=== PATIENT | female | born 1960 ===

== ENCOUNTER → 2020-04-24 | Outpatient (CLI) | payer BC ==
[2020-04-24 14:45] VITALS: BP 131/80; PULSE 67; RESP 20; TEMP 98.1; BMI 37.3
--- NOTE | 2020-04-24 15:34 | P.BASOAP ---
Subjective Progress Note Date: 04/24/20 Principal diagnosis: Morbid obesity 59-year-old female known to our service from previous lap band placement. Patient is complaining of intractable vomiting at this time. Describes worsening reflux as well. Despite that the patient has not been able to lose weight sufficiently. Patient is now interested in emptying the band and converting to alternative bariatric procedure. Would like to have the sleeve gastrectomy. Says she had an EGD 2-3 years ago. Those results are not available to me. Denies pain. Objective - Vital Signs Vital signs: Vital Signs Temp 98.1 F 04/24/20 14:40 Pulse 67 04/24/20 14:40 Resp 20 04/24/20 14:40 BP 131/80 04/24/20 14:40 Pulse Ox Intake & Output 04/23/20 04/24/20 04/24/20 18:59 06:59 18:59 Weight 86.636 kg - Exam Abdomen: Soft, nontender, nondistended Assessment/Plan (1) Intractable vomiting Narrative/Plan: 59-year-old female with intractable vomiting. We'll into the band at this time. Patient is interested in band conversion to sleeve gastrectomy. That is not unreasonable. We'll obtain medical clearance and discussed with Alexys maynard regarding any additional preoperative requirements. Patient may require repeat EGD. The patient's lap band port was palpated. The site was aseptically prepped. The Alas needle was advanced into the port. A total of 10 ml of fluid was evacuated. Pressure was held and a sterile dressing was applied. Plan: Date: 04/24/20 Initial Weight: 86.636 kg Initial BMI: 37.3 Current Weight: 86.636 kg Current BMI: 37.3 Type of Surgery: Total Volume in Band: Previous Volume: Volume Removed: Volume Added: Band Size:
== END | disposition home or self-care (01) ==
LOC: BARWHC3 14:30
PROVIDERS: ATTEND Surgery
DX: Z46.51 Encounter for fitting and adjustment of gastric lap band (principal); R11.10 Vomiting, unspecified
CPT/HCPCS: 99212

== ENCOUNTER → 2020-05-07 | Outpatient (CLI) | payer BC ==
[2020-05-07 13:28] VITALS: BMI 38.7
== END | disposition home or self-care (01) ==
LOC: BARWHC3 08:44
PROVIDERS: ATTEND Surgery
DX: E66.01 Morbid (severe) obesity due to excess calories (principal); Z71.3 Dietary counseling and surveillance; Z68.38 Body mass index [BMI] 38.0-38.9, adult
CPT/HCPCS: 97804

== ENCOUNTER 2020-06-05 09:48 | Day surgery (SDC) | payer BC ==
[2020-06-01 15:30] VITALS: BMI 39.4
[~2020-06-05 09:48] MED LIST: LACTATED RINGERS 1,000 ML IV SCH
[2020-06-05 10:21] VITALS: TEMP 97
[2020-06-05] MEDS ORDERED: PROPOFOL 10 MG/ML 20 ML VIAL IV ONE (10:51)
[2020-06-05] MEDS ORDERED: LIDOCAINE 1% INJ 10MG/ML (20 ML MDV) ONE (10:51)
--- NOTE | 2020-06-05 10:54 | P.GSHP ---
History of Present Illness H&P Date: 06/05/20 Chief Complaint: GERD Patient here today for upper endoscopy. Has been having intermittent vomiting and reflux. Her lab band was emptied and since then her reflux and vomiting have improved. Patient interested in conversion to alternate bariatric procedure. Currently she is interested in gastric bypass. Past Medical History Past Medical History: Osteoarthritis (OA) Additional Past Medical History / Comment(s): PASSED OUT IN OCT 2019 HAS LOOP RECORDER NOW History of Any Multi-Drug Resistant Organisms: None Reported Past Surgical History: Bariatric Surgery, Breast Surgery, Tonsillectomy Additional Past Surgical History / Comment(s): LAP BAND-2008, LT BREAST LUMPECTOMY, ECTOPIC -1981, LOOP RECORDER Past Anesthesia/Blood Transfusion Reactions: Motion Sickness Past Psychological History: No Psychological Hx Reported Past Alcohol Use History: Occasional Past Drug Use History: None Reported - Past Family History Mother Family Medical History: No Reported History Father Family Medical History: Cancer Additional Family Medical History / Comment(s): SKIN CANCER Medications and Allergies Home Medications Medication Instructions Recorded Confirmed Type Celecoxib [CeleBREX] 200 mg PO DAILY 04/24/20 06/05/20 History Ergocalciferol [Vitamin D2] 50,000 unit PO Q7D 04/24/20 06/05/20 History Omeprazole 20 mg PO DAILY 04/24/20 06/05/20 History Oxybutynin Chloride [Oxybutynin 15 mg PO DAILY 04/24/20 06/05/20 History Chloride ER] valACYclovir [Valtrex] 500 mg PO DAILY 04/24/20 06/05/20 History Allergies Allergy/AdvReac Type Severity Reaction Status Date / Time acetaminophen [From Percocet] Allergy Nausea & Verified 06/05/20 10:10 Vomiting ampicillin Allergy Rash/Hives Verified 06/05/20 10:10 latex Allergy red, Verified 06/05/20 10:10 itchy, blotchy skin oxycodone [From Percocet] Allergy Nausea & Verified 06/05/20 10:10 Vomiting Penicillins Allergy Rash/Hives Verified 06/05/20 10:10 Surgical - Exam Vital Signs Temp Pulse Resp BP Pulse Ox 97 F L 86 16 147/73 93 L 06/05/20 10:15 06/05/20 10:15 06/05/20 10:15 06/05/20 10:15 06/05/20 10:15 Physical exam: General: Well-developed, well-nourished HEENT: Normocephalic, sclerae nonicteric Abdomen: Nontender, nondistended Extremities: No edema Neuro: Alert and oriented Assessment and Plan (1) GERD (gastroesophageal reflux disease) Narrative/Plan: Will proceed with upper endoscopy. Current Visit: Yes Status: Acute Code(s): K21.9 - GASTRO-ESOPHAGEAL REFLUX DISEASE WITHOUT ESOPHAGITIS SNOMED Code(s): 667647603
--- NOTE | 2020-06-05 11:02 | P.PCN ---
Date of Procedure: 06/05/20 Procedure(s) Performed: Preoperative Dx: GERD Postoperative Dx: Gastritis, gastric polyps Procedure: EGD with Bx Anesthesia: Sedation Endoscopist: Dr. Alvarez Specimens: Antrum, gastric polyp Endoscopic Procedure: The patient was on the endoscopy table in the left decubitus position. The Olympus gastroscope was inserted into the oropharynx and passed under direct visualization to the region of the third portion of the duodenum. From that point the scope was slowly withdrawn inspecting all surfaces carefully. There were no neoplastic inflammatory or polypoid lesions throughout the duodenum. The pylorus was widely patent. The stomach was carefully inspected. There was mild gastritis present. A biopsy of the antrum took place to rule out H. pylori. Patient also had multiple gastric polyps. The largest one measured about 6 mm in size and this was removed. Retroflexion revealed a normal band plication. No definite hiatal hernia was seen. The esophagus was then carefully examined. There were no neoplastic inflammatory or polypoid lesions throughout the visualized esophagus. The patient was then taken to the recovery room in stable condition per anesthesia guidelines. Recommendations: Await biopsy results. Follow-up bariatric clinic
[2020-06-05 11:17] VITALS: BP 137/78; PULSE 78; RESP 18
== END 2020-06-05 11:45 | disposition home or self-care (01) ==
LOC: ORWHC2ENDO 09:48
PROVIDERS: ATTEND Surgery
DX: K29.50 Unspecified chronic gastritis without bleeding (principal); K31.7 Polyp of stomach and duodenum; K21.9 Gastro-esophageal reflux disease without esophagitis; M19.90 Unspecified osteoarthritis, unspecified site; Z98.84 Bariatric surgery status; Z95.818 Presence of other cardiac implants and grafts; Z79.899 Other long term (current) drug therapy; Z88.5 Allergy status to narcotic agent; Z88.0 Allergy status to penicillin; Z91.040 Latex allergy status; Z98.890 Other specified postprocedural states; Z90.89 Acquired absence of other organs; Z80.8 Family history of malignant neoplasm of other organs or systems
CPT/HCPCS: 88305; 43239; J2001; J2704

== ENCOUNTER → 2020-06-20 | Outpatient (CLI) | payer BC ==
--- NOTE | 2020-06-20 15:14 | P.HPBAR ---
Bariatric H&P - History & Physicial H&P Date: 06/20/20 History & Physicial: Visit/CC: Patient initial contact: Initial weight: 86.636 kg Initial weight in pounds: Height: Initial BMI: Last weight: Current weight: Current weight in pounds: Current BMI: [place] body weight (based on NIH guidelines): Excess body weight loss: The patient is a 59 year-old F who presents for Bariatric Assessment. Has lap band in 2008. In 2017 to 2018 for her band and was trying to lose 40 pounds from dehydration. She had upper endoscopy and was looking into the sleeve. she reports GERD. SHe has a loop monitor and heart test. She reports developing high blood pressure. She was approved for a sleeve. She has a band. She got clearance from medical doctor. Machin[employer] clearance for history of loop recorder. May need requirements for procedure. She had a colonoscopy in Dec 20 - had 2 to 3 polyps. Will needs labs and full work=up Labs. Band removal history of ruptured Past Medical History Past Medical History: No Reported History History of Any Multi-Drug Resistant Organisms: None Reported Past Surgical History: Bariatric Surgery, Breast Surgery, Tonsillectomy Additional Past Surgical History / Comment(s): LAP BAND-2008, LT BREAST LUMPECTOMY, ECTOPIC -1981 Past Anesthesia/Blood Transfusion Reactions: Motion Sickness Past Alcohol Use History: Occasional Past Drug Use History: None Reported Bariatric Checklist Checklist: Plan: Checklist: EGD: 1. Hiatal hernia: 2. H. Pylori: HgbA1c: Vitamin D: Smoking: Never smoker Primary care physician referral: Dr Coe in [place] Psychiatry clearance: Cardiology clearance: Sleep study: Diet journal: VTE risk score: VTE risk level: Rehab needs at discharge:
[2020-06-20 16:11] VITALS: BP 145/78; PULSE 92; TEMP 98.5; BMI 40.0
== END | disposition home or self-care (01) ==
LOC: BARWHC3 14:54
PROVIDERS: ATTEND Surgery Plastic and Reconstructive Surgery
DX: Z46.51 Encounter for fitting and adjustment of gastric lap band (principal); K21.9 Gastro-esophageal reflux disease without esophagitis; E86.0 Dehydration; Z98.84 Bariatric surgery status
CPT/HCPCS: 99211

== ENCOUNTER → 2020-06-21 | Outpatient (CLI) | payer BC ==
[2020-06-21 13:22] LABS: HCT 38.9 % (34.0-46.0); HGB 11.9 gm/dL (11.4-16.0); Hypochromasia Slight; MCHC 30.5 g/dL (31.0-37.0); MCV 88.5 fL (80.0-100.0); Mean Platelet Volume 6.7; Platelet Count 347 k/uL (150-450); RBC 4.39 m/uL (3.80-5.40); RDW 14.5 % (11.5-15.5); WBC 5.1 k/uL (3.8-10.6)
[2020-06-21 18:55] LABS: % Iron Saturation 16.37 (12.00-45.00); African American GFR (CKD) 115.6 (60.0-200.0); Albumin 4.4 g/dL (3.80-4.90); Albumin/Globulin Ratio 1.83 (1.60-3.17); Anion Gap 7.4 mmol/L (4.00-12.00); Calcium 9.5 mg/dL (8.7-10.3); Carbon Dioxide 26.6 mmol/L (21.6-31.8); Chol/HDL Ratio 2.64; Globulin 2.4 g/dL (1.6-3.3); LDL Cholesterol,Calculated 98.6 mg/dL (0.0-131.0); Magnesium 1.9 mg/dL (1.5-2.4); Non-African American GFR(CKD) 99.8 (60.0-200.0); Phosphorus 4.4 mg/dL (2.4-5.1); Potassium 4.1 mmol/L (3.5-5.5); Total Bilirubin 0.9 mg/dL (0.3-1.2); Total Protein 6.8 g/dL (6.2-8.2); VLDL Calculation 19.4 mg/dL (5.00-40.00)
[2020-06-21 19:08] LABS: Ferritin 6.4 ng/mL (10.0-291.0); Folate, Serum 19.1 ng/mL
[2020-06-21 21:24] LABS: Hemoglobin A1C 6.1 % (4.0-6.0)
[2020-06-21 23:59] LABS: INR <0.90 (0.90-1.11); Partial Thromboplastin Time 28.9 sec (24.7-29.9); Prothrombin Time <9.9 sec (9.9-11.9)
[2020-06-22 14:57] LABS: Zinc, Serum 65 ug/dL (60-130)
== END | disposition home or self-care (01) ==
LOC: LABWHC1 12:00
PROVIDERS: ATTEND Surgery Plastic and Reconstructive Surgery
DX: E21.1 Secondary hyperparathyroidism, not elsewhere classified (principal); E89.1 Postprocedural hypoinsulinemia; D50.9 Iron deficiency anemia, unspecified; K90.9 Intestinal malabsorption, unspecified; E55.9 Vitamin D deficiency, unspecified; K74.1 Hepatic sclerosis; N19 Unspecified kidney failure; K50.90 Crohn's disease, unspecified, without complications
CPT/HCPCS: 36415; 80053; 80061; 82306; 82525; 82607; 82728; 82746; 83036; 83540; 83550; 83735; 83970; 84100; 84134; 84255; 84425; 84443; 84590; 84630; 85027; 85610; 85730; 93005

== ENCOUNTER → 2020-11-07 | Outpatient (CLI) | payer BC ==
--- NOTE | 2020-11-07 15:29 | P.PN ---
Subjective Progress Note Date: 11/07/20 DATE OF SERVICE: 11/07/2020 CHIEF COMPLAINT: Morbid obesity HISTORY OF PRESENT ILLNESS: Arpita Valente is a 60-year-old female who comes with lifelong morbid obesity. She has a gastric lap band since 2008. She is 11 years out from her procedure. She comes in with gastroespohageal reflux disease, intolerance to band adjustments as a result of her adjustable gastric band. She comes in with moderate weight gain despite her adjustable gastric band. She is looking into the band removal. She is also looking into the gastric bypass. She no longer wants the sleeve. Overall, she has gained 30 pounds in 6 months. She presents for management of her weight loss. At height of 5 feet 0 inches, her ideal body weight is 127 pounds. She comes in 219 pounds from 205 pounds, 5 months ago. She has gained 14 pounds in 5 months. Her body mass index is 40.0 up to 42.8. She is 92 pounds overweight. PAST MEDICAL HISTORY: 1. Morbid obesity due to excess calories 2. Body mass index of 40.0 3. Gastroesophageal reflux disease 4. Osteoarthritis of the knees 5. Heart arrhythmia 6. History of colon polyps 7. Hypertensive heart disease PAST SURGICAL HISTORY: 1. Ectopic 2. Adjustable gastric band placement 3. Upper endoscopy 4. Colonoscopy with polypectomy 5. Placement of loop recorder HOME MEDICATIONS: Home Medications Medication Instructions Recorded Confirmed Celecoxib [CeleBREX] 200 mg PO DAILY 04/24/20 06/21/20 Ergocalciferol [Vitamin D2] 50,000 unit PO Q7D 04/24/20 06/21/20 Omeprazole 20 mg PO DAILY 04/24/20 06/21/20 Oxybutynin Chloride [Oxybutynin 15 mg PO DAILY 04/24/20 06/21/20 Chloride ER] valACYclovir [Valtrex] 500 mg PO DAILY 04/24/20 06/21/20 ALLERGIES: Allergies Allergy/AdvReac Type Severity Reaction Status Date / Time acetaminophen [From Percocet] Allergy Nausea & Verified 06/05/20 10:10 Vomiting ampicillin Allergy Rash/Hives Verified 06/05/20 10:10 latex Allergy red, Verified 06/05/20 10:10 itchy, blotchy skin oxycodone [From Percocet] Allergy Nausea & Verified 06/05/20 10:10 Vomiting Penicillins Allergy Rash/Hives Verified 06/05/20 10:10 SOCIAL HISTORY: No past tobacco use. FAMILY HISTORY: No family history of ulcerative colitis disease or Crohn's disease. Family history of morbid obesity. No lupus in the family. No reports of stomach or esophageal cancer. REVIEW OF ORGAN SYSTEMS: CONSTITUTIONAL: HEENT: Denies any active troubles with hearing. Wears glasses. ENDOCRINE: No diabetes. No hypothyroidism. CARDIOVASCULAR: Past reports of palpitations or heart attacks or chest pain. RESPIRATORY: No daytime somnolence. No asthma. GASTROINTESTINAL: Denies any bright red blood per rectum. No diarrhea. No constipation. MUSCULOSKELETAL: Has lower back pain and joint pain. Has osteoarthritis of the knees. NEURO: No headaches. No seizure disorders. PSYCH: No depression. No suicidal ideation. RHEUMATOLOGIC: No lupus. No rheumatoid arthritis. HEMATOLOGIC: Denies any abnormal bleeding or bruising. No personal history of DVTs. SKIN: No rash. No skin cancer. PHYSICAL EXAM: VITAL SIGNS: Height 5 foot 0 inches, weight 219 pounds. BMI 42.8 Vital Signs Temp 98 F 11/07/20 16:17 Pulse 56 L 11/07/20 16:17 Resp BP 151/77 11/07/20 16:17 Pulse Ox GENERAL: Well-developed in no acute distress. HEENT: No scleral icterus. Extraocular movements grossly intact. Hears conversational speech. No nasal drainage. NECK: Supple without lymphadenopathy. CHEST: Nonlabored respirations with equal bilateral excursions. CARDIOVASCULAR: Regular rate and regular rhythm. Distal 2+ pulses. ABDOMEN: Obese, soft, nontender, nondistended. MUSCULOSKELETAL: No clubbing, cyanosis. NEURO: No focal or lateralizing signs. Cranial nerves 2 through 12 grossly within normal limits. PSYCH: Appropriate affect. Alert and oriented to person, place and time. SKIN: Good skin turgor. Well perfused. ASSESSMENT: 1. Morbid obesity due to excess calories 2. Body mass index of 42.8 3. Gastroesophageal reflux disease 4. Osteoarthritis of the knees 5. Heart arrhythmia 6. History of colon polyps 7. Hypertensive heart disease 8. Complications from adjustable gastric band PLAN: 1. Recommend adjustable band removal and all components due to complications. 2. Recommend display mechanic class. 3. She is elevated risk for complications due to pre-existing heart disease.
[2020-11-07 16:20] VITALS: BP 151/77; PULSE 56; TEMP 98; BMI 42.7
== END | disposition home or self-care (01) ==
LOC: BARWHC3 14:54
PROVIDERS: ATTEND Surgery Plastic and Reconstructive Surgery
DX: Z46.51 Encounter for fitting and adjustment of gastric lap band (principal); K21.9 Gastro-esophageal reflux disease without esophagitis; M17.0 Bilateral primary osteoarthritis of knee; I49.9 Cardiac arrhythmia, unspecified; I11.9 Hypertensive heart disease without heart failure; Z87.19 Personal history of other diseases of the digestive system; E66.01 Morbid (severe) obesity due to excess calories; Z68.41 Body mass index [BMI] 40.0-44.9, adult; Z88.5 Allergy status to narcotic agent; Z91.040 Latex allergy status; Z88.0 Allergy status to penicillin; Z79.1 Long term (current) use of non-steroidal anti-inflammatories (NSAID); Z79.899 Other long term (current) drug therapy; Z98.84 Bariatric surgery status
CPT/HCPCS: 99211

== ENCOUNTER → 2020-11-07 | Outpatient (CLI) | payer BC ==
[2020-11-07 16:24] LABS: Basophils % (A) 1 %; Eosinophils # (A) 0.2 k/uL (0-0.7); Eosinophils % (A) 2 %; HCT 41.7 % (34.0-46.0); HGB 13.3 gm/dL (11.4-16.0); Lymphocytes # (A) 1.7 k/uL (1.0-4.8); Lymphocytes % (A) 27 %; MCH 28.8 pg (25.0-35.0); MCV 90.1 fL (80.0-100.0); Mean Platelet Volume 6.7; Monocytes # (A) 0.4 k/uL (0-1.0); Monocytes % (A) 6 %; Neutrophils # (A) 3.9 k/uL (1.3-7.7); Neutrophils % (A) 61 %; Platelet Count 332 k/uL (150-450); RBC 4.63 m/uL (3.80-5.40); RDW 14.5 % (11.5-15.5); WBC 6.3 k/uL (3.8-10.6)
[2020-11-07 16:32] LABS: ALT 18 U/L (4-34); AST 25 U/L (14-36); African American GFR (CKD) >90 (>60 ml/min/1.73 sqM); Albumin 4.3 g/dL (3.5-5.0); Alkaline Phosphatase 92 U/L (38-126); Anion Gap 7 mmol/L; Blood Urea Nitrogen 14 mg/dL (7-17); Calcium 9.5 mg/dL (8.4-10.2); Carbon Dioxide 27 mmol/L (22-30); Chloride 104 mmol/L (98-107); Glucose 100 mg/dL (74-99); Non-African American GFR(CKD) >90 (>60 ml/min/1.73 sqM); Potassium 4.4 mmol/L (3.5-5.1); Sodium 138 mmol/L (137-145); Total Bilirubin 0.6 mg/dL (0.2-1.3); Total Protein 7.5 g/dL (6.3-8.2)
== END | disposition home or self-care (01) ==
LOC: LABPAT 15:40
PROVIDERS: ATTEND Surgery Plastic and Reconstructive Surgery
DX: Z01.818 Encounter for other preprocedural examination (principal)
CPT/HCPCS: 80053; 85025

== ENCOUNTER 2020-11-19 06:19 | Day surgery (SDC) | payer BC ==
[2020-11-13 17:44] VITALS: BMI 42.2
--- NOTE | 2020-11-18 20:35 | P.GSHP ---
History of Present Illness H&P Date: 11/19/20 DATE OF SERVICE: 11/19/2020 CHIEF COMPLAINT: Complications adjustable gastric band HISTORY OF PRESENT ILLNESS: Arpita Valente is a 60-year-old female who comes with lifelong morbid obesity. She has a gastric lap band since 2009, over 10+ years old. In 2017 to 2018, she was losing weight and was trying to lose 40 pounds from dehydration. She had upper endoscopy and is looking into the sleeve gastrecomty. She reports gastroesophageal reflux disease. She has a loop monitor for her heart. She reports developing high blood pressure as a result of her morbid obesity. She reports being approved for a sleeve gastrectomy. She has a band. She received medical clearance from her medical doctor. She received cardiology clearance for history of loop recorder. She had a colonoscopy in Dec 20, 2019 and had 2 to 3 polyps removed. She presents secondary to her morbid obesity including complications adjustable gastric band. At height of 5 feet 0 inches, her ideal body weight is 127 pounds. She comes in 205 pounds. Her body mass index is 40.0. She is 78 pounds overweight. PAST MEDICAL HISTORY: 1. Morbid obesity due to excess calories 2. Body mass index of 40.0 3. Gastroesophageal reflux disease 4. Osteoarthritis of the knees 5. Heart arrhythmia 6. History of colon polyps 7. Hypertensive heart disease PAST SURGICAL HISTORY: 1. Ectopic 2. Adjustable gastric band placement 3. Upper endoscopy 4. Colonoscopy with polypectomy 5. Placement of loop recorder HOME MEDICATIONS: Home Medications Medication Instructions Recorded Confirmed Celecoxib [CeleBREX] 200 mg PO DAILY 04/24/20 06/21/20 Ergocalciferol [Vitamin D2] 50,000 unit PO Q7D 04/24/20 06/21/20 Omeprazole 20 mg PO DAILY 04/24/20 06/21/20 Oxybutynin Chloride [Oxybutynin 15 mg PO DAILY 04/24/20 06/21/20 Chloride ER] valACYclovir [Valtrex] 500 mg PO DAILY 04/24/20 06/21/20 ALLERGIES: Allergies Allergy/AdvReac Type Severity Reaction Status Date / Time acetaminophen [From Percocet] Allergy Nausea & Verified 06/05/20 10:10 Vomiting ampicillin Allergy Rash/Hives Verified 06/05/20 10:10 latex Allergy red, Verified 06/05/20 10:10 itchy, blotchy skin oxycodone [From Percocet] Allergy Nausea & Verified 06/05/20 10:10 Vomiting Penicillins Allergy Rash/Hives Verified 06/05/20 10:10 SOCIAL HISTORY: No past tobacco use. FAMILY HISTORY: No family history of ulcerative colitis disease or Crohn's disease. Family history of morbid obesity. No lupus in the family. No reports of stomach or esophageal cancer. REVIEW OF ORGAN SYSTEMS: CONSTITUTIONAL: At height of 5 feet 0 inches, her ideal body weight is 127 pounds. She comes in 205 pounds. Her body mass index is 40.0. She is 78 pounds overweight. HEENT: Denies any active troubles with hearing. Wears glasses. ENDOCRINE: No diabetes. No hypothyroidism. CARDIOVASCULAR: Past reports of palpitations or heart attacks or chest pain. RESPIRATORY: No daytime somnolence. No asthma. GASTROINTESTINAL: Denies any bright red blood per rectum. No diarrhea. No const ipation. MUSCULOSKELETAL: Has lower back pain and joint pain. Has osteoarthritis of the knees. NEURO: No headaches. No seizure disorders. PSYCH: No depression. No suicidal ideation. RHEUMATOLOGIC: No lupus. No rheumatoid arthritis. HEMATOLOGIC: Denies any abnormal bleeding or bruising. No personal history of DVTs. SKIN: No rash. No skin cancer. PHYSICAL EXAM: VITAL SIGNS: Height 5 foot 0 inches, weight 205 pounds. BMI 40.0 GENERAL: Well-developed in no acute distress. HEENT: No scleral icterus. Extraocular movements grossly intact. Hears conversational speech. No nasal drainage. NECK: Supple without lymphadenopathy. CHEST: Nonlabored respirations with equal bilateral excursions. CARDIOVASCULAR: Regular rate and regular rhythm. Distal 2+ pulses. ABDOMEN: Obese, soft, nontender, nondistended. MUSCULOSKELETAL: No clubbing, cyanosis. NEURO: No focal or lateralizing signs. Cranial nerves 2 through 12 grossly within normal limits. PSYCH: Appropriate affect. Alert and oriented to person, place and time. SKIN: Good skin turgor. Well perfused. ASSESSMENT: 1. Morbid obesity due to excess calories 2. Body mass index of 40.0 3. Gastroesophageal reflux disease 4. Osteoarthritis of the knees 5. Heart arrhythmia 6. History of colon polyps 7. Hypertensive heart disease 8. Complications from adjustable gastric band PLAN: 1. Surgical options including gastric bypass, sleeve gastrectomy were described in detail. Alternatives such as gastric balloon including duodenal switch were described. She is looking into the gastric bypass. 2. The [place] bariatric surgical collaborative data and outcomes calculator were described with surgical options. 3. Dietary surveillance and counseling was reviewed. Increased protein intake over 65 grams daily advised. 4. Recommend band removal for history of adjustable gastric band with complications. Past Medical History Past Medical History: GERD/Reflux, Osteoarthritis (OA), Syncope Additional Past Medical History / Comment(s): anemia, syncope related to vasovagal response per pt.-has loop recorder implant History of Any Multi-Drug Resistant Organisms: None Reported Past Surgical History: Bariatric Surgery, Breast Surgery, Tonsillectomy Additional Past Surgical History / Comment(s): LAP BAND-2008, LT BREAST LUMPECTOMY, ECTOPIC -1981, loop recorder implant, tilt table test, colonoscopies, EGD's Past Anesthesia/Blood Transfusion Reactions: Previous Problems w/ Anesthesia, Motion Sickness Additional Past Anesthesia/Blood Transfusion Reaction / Comment(s): had problems being put to sleep for lap band, not sure what, she stated they stopped surg. first time & then tried again 2nd time, denies anyone said difficulty w/intubation or her airway Smoking Status: Never smoker Medications and Allergies Home Medications Medication Instructions Recorded Confirmed Type Ergocalciferol [Vitamin D2] 50,000 unit PO Q7D 04/24/20 11/13/20 History Omeprazole 20 mg PO DAILY 04/24/20 11/13/20 History Oxybutynin Chloride [Oxybutynin 15 mg PO DAILY 04/24/20 11/13/20 History Chloride ER] valACYclovir [Valtrex] 500 mg PO DAILY 04/24/20 11/13/20 History Celecoxib [CeleBREX] 200 mg PO DAILY 11/13/20 11/13/20 History Ferrous Sulfate [Feosol] 325 mg PO DAILY 11/13/20 11/13/20 History Allergies Allergy/AdvReac Type Severity Reaction Status Date / Time acetaminophen [From Percocet] Allergy Nausea & Verified 11/13/20 17:04 Vomiting ampicillin Allergy Rash/Hives Verified 11/13/20 17:04 latex Allergy red, Verified 11/13/20 17:04 itchy, blotchy skin oxycodone [From Percocet] Allergy Nausea & Verified 11/13/20 17:04 Vomiting Penicillins Allergy Rash/Hives Verified 11/13/20 17:04
[~2020-11-19 06:19] MED LIST changes: +ACETAMINOPHEN TAB 500 MG TAB PO STA; +CHLORHEXIDINE GLUCONATE 15 ML CUP MUCOUS MEM PRN; +DEXAMETHASONE SOD PHOSPHATE 4 MG/ML 1 ML VIAL IV ONE; +ENOXAPARIN 40 MG/0.4 ML SYRINGE SQ PRN; +GABAPENTIN 300 MG CAP PO STA; +MIDAZOLAM 2 MG/2 ML VIAL IV PRN; +ONDANSETRON 4 MG/2 ML VIAL IVP ONE; +PANTOPRAZOLE 40 MG/10 ML VIAL IV PRN; +SCOPOLAMINE 1.5MG/72HR PATCH TRANSDERM ONE; +SCOPOLAMINE 1.5MG/72HR PATCH TRANSDERM STA
[2020-11-19] MEDS ORDERED: LIDOCAINE 1% (10MG/ML) FOR IV START INTRADERMA ONE (06:58)
[2020-11-19] MEDS ORDERED: fentaNYL (PF) 50 MCG/ML 2 ML AMP IV PRN (07:00)
[2020-11-19] MEDS ORDERED: MELOXICAM 7.5 MG TAB PO SCH (07:00)
[2020-11-19] MEDS ORDERED: MIDAZOLAM 2 MG/2 ML VIAL ONE (07:19)
[2020-11-19] MEDS ORDERED: ROCURONIUM 10 MG/ML (10 ML VIAL) IV ONE (07:19)
[2020-11-19] MEDS ORDERED: PROPOFOL 10 MG/ML 20 ML VIAL IV ONE (07:19)
[2020-11-19] MEDS ORDERED: SUCCINYLCHOLINE CHLORIDE 100 MG/5 ML SYR IV ONE (07:19)
[2020-11-19] MEDS ORDERED: NEOSTIGMINE 1 MG/ML 10 ML VIAL ONE (07:19)
[2020-11-19] MEDS ORDERED: GLYCOPYRROLATE 0.2 MG/ML 2 ML VIAL ONE (07:19)
[2020-11-19] MEDS ORDERED: LIDOCAINE 1% INJ 10MG/ML (20 ML MDV) ONE (07:19)
[2020-11-19] MEDS ORDERED: fentaNYL (PF) 50 MCG/ML 2 ML AMP ONE (07:19)
[2020-11-19] MEDS ORDERED: PHENYLEPHRINE 10 MG/ML VIAL ONE (07:19)
[2020-11-19] MEDS ORDERED: LIDOCAINE 1%-EPI 1:100,000 20 ML VIAL SQ ONE ×2 (08:00)
[2020-11-19] MEDS ORDERED: LACTATED RINGERS 1,000 ML IV ONE (08:40)
[2020-11-19 09:17] VITALS: TEMP 97.4
[2020-11-19] MEDS: HYDROmorphone 0.5 MG/0.5 ML SYRINGE IVP ONE ×2 (09:35→09:48)
--- NOTE | 2020-11-19 09:51 | P.OP ---
Date of Procedure: 11/19/20 Description of Procedure: SURGEON: KIAN SCHOFIELD MD PREOPERATIVE DIAGNOSES: 1. Morbid obesity due to excess calories 2. Body mass index of 43.3 3. Gastroesophageal reflux disease 4. Osteoarthritis of the knees 5. Heart arrhythmia 6. History of colon polyps 7. Hypertensive heart disease 8. Complications from adjustable gastric band POSTOPERATIVE DIAGNOSES: 1. Morbid obesity due to excess calories 2. Body mass index of 43.3 3. Gastroesophageal reflux disease 4. Osteoarthritis of the knees 5. Heart arrhythmia 6. History of colon polyps 7. Hypertensive heart disease 8. Complications from adjustable gastric band 9. Abdominal peritoneal adhesions greater omentum to abdominal wall 10. Chronic cholecystitis 11. Hepatomegaly with severe fatty liver disease OPERATION: 1. Robotic-assisted da Mehul Xi laparoscopic removal of adjustable gastric band and all components. 2. Robotic-assisted da Mehul Xi laparoscopic lysis of adhesions, 30 minutes ANESTHESIA: General with local anesthetic. ESTIMATED BLOOD LOSS: 5 mL SPECIMENS REMOVED: 1. Adjustable gastric band and components Condition: stable Disposition: same day COMPLICATIONS: None. Operative Findings: 1. Moderate adhesions along the epigastrium due to adjustable gastric band 2. Adjustable gastric band port found along the epigastrium removed in total 3. Severe perihepatic including perigastric adhesions from adjustable gastric band with band embedded into the liver carefully dissected 4. Patient with Mallampati 3 with small mouth adding difficulty for perioral instrumentation 5. Extremely dense subcutaneous tissue recurrent dissection for port removal 6. Gallbladder wall thickening including pericholecystic adhesions suspicious for chronic cholecystitis INDICATIONS: The patient is a 60-year-old male who presents with complications of her adjustable gastric band. Surgical options were described including removal of the band. As she has persistent pain and discomfort from the band, removal of the adjustable gastric band and port including all components was proposed. Benefits and risks of the procedure were described. Informed consent was obtained. DESCRIPTION: The patient was brought into the operating room theater. She was placed supine. She had received Lovenox subcutaneously for DVT prophylaxis. Additionally she Peridex oral solution as an oral decontaminant was placed per anesthesia. After general induction, the abdomen was prepped and draped in standard sterile fashion. Ioban draping was placed along the abdomen. A robotic da Mehul Xi system was prepped and primed. Prior to incision, a timeout protocol was performed and confirmed with the surgical team. Attention was now brought to the intra-abdominal component of the procedure the removal of the adjustable gastric band. Incisions were proposed at 12 cm from the xiphoid. Proposed port sites were marked with indelible marker along the anterior axillary line bilaterally, mid clavicular line bilaterally with each port marked 10 cm from each other. A 5 mm 0 degrees laparoscopic trocar entry was performed along the left upper quadrant. The abdomen was insufflated to 15 mmHg pressure, which she tolerated well. Diagnostic laparoscopy demonstrated no injury to bowel, viscera, or mesentery. An 8 mm camera port was placed left lateral to the umbilicus at the epigastrium, 12 cm distal to the xiphoid. Next, 8-mm port was placed along the right mid abdomen. The 5 mm port was exchanged for 12 mm trocar. A medium sized Abraham liver retractor was used to elevate the left lobe of the liver. The robot was docked along the left lateral abdomen. The patient was repositioned in reverse Trendelenburg position, 21-degrees. A 30-degree camera was used. Using a Prograsp for arm 3, including scissors with cautery for arm 1, the robotic system was docked and primed as described. Instruments were interchanged by the assistant store manager operations. I had sat at the console. Moderate to severe adhesions along the epigastrium including right upper and lower quadrant and greater omentum to abdominal wall was found. Extensive lysis of adhesions over 30 minutes was performed using endo-scissors with cautery to free these adhesions including around the adjustable gastric band. Adjustable gastric band was embedded into the left lobe of the liver which was carefully dissected free. Additionally, the buckle of the adjustable gastric band was densely adherent to the deep tissue requiring cutting the band away from the buckle. The port was followed with its tubing to the gastric band. The gastrohepatic ligament was scarred from prior surgery. The cicatrix around the adjustable gastric band was carefully dissected free. The anti-prolapse stitch was intact. Using scissors with cautery, the cicatrix of the port was incised. The band was then freed. Allergan adjustable gastric band was removed in total. Care was taken to avoid any gastrotomies. The band was unbuckled and cut. The tubing was cut approximately 5 cm distal to the actual adapter. I then went to the head of the bed to perform intraoperative esophagogastroduodenoscopy to evaluate for gastritis and any full thickness injury to the stomach. An Olympus gastroscope was passed from the posterior oropharynx down to the esophagus, where the squamocolumnar junction was found LA grade B erosive esophagitis, chronic changes. The stomach was entered and bile was found and suctioned. Mild chronic gastritis was found along the antrum without gastric ulcers or duodenitis or duodenal ulcers. Retroflexion of the scope confirmed a Hill grade 2 lower esophageal valve. No full-thickness erosion from the prior band was encountered. Recent blood was found within the stomach. The stomach was desufflated. The patient tolerated the procedure well. No evidence of leak was encountered from the removal of the band. The scope was removed with desufflation of the stomach. I re-scrubbed into the case. The port was palpated along the epigastrium. Her subcutaneous tissue was at least 6 cm in depth. A transverse 3 cm incision was placed over the adjustable gastric band port site using #11 blade. The incision was deepened to the subcutaneous tissue using electrocautery Bovie cautery. The port was identified and circumferentially dissected free from the surrounding tissues. Once freed, the port was removed from the pocket and placed onto the skin. The band was removed in total without injury to the stomach. Hemostasis was excellent. The adjustable gastric band was removed from the abdominal cavity via 12 mm port that was exchanged for the 5-mm port at the left upper abdomen. Diagnostic laparoscopy demonstrated complete removal of all foreign body. Along the left upper quadrant 12 mm port site, Brayan Seo and 0 Vicryl sutures were used to close the fascia. All instruments and pneumoperitoneum were evacuated from the abdominal cavity. The port extraction site was hemostatic. The port site was irrigated using normal saline and hydrogen peroxide. The incisions were reapproximated using 4- 0 Monocryl in a subcuticular interrupted fashion. Optifoam dressing was placed over the port extraction site. At the end of the procedure, needle, sponge and instrument counts were verified correct by the surgical first assistant. The patient had tolerated the procedure well. An abdominal binder was placed. The patient was transferred to Postanesthesia Care Unit in stable condition. Postoperative findings with intraoperative images were discussed with the patient's family who were pleased with the level of care. Plan - Discharge Summary Discharge Rx Participant: Yes New Discharge Prescriptions: New Acetaminophen Tab [Tylenol Tab] 1,000 mg PO Q6HR PRN #30 tablet PRN Reason: Pain Continue Oxybutynin Chloride [Oxybutynin Chloride ER] 15 mg PO DAILY valACYclovir [Valtrex] 500 mg PO DAILY Ergocalciferol [Vitamin D2 (DRISDOL)] 50,000 unit PO Q7D Omeprazole 20 mg PO DAILY Ferrous Sulfate [Iron (65 MG Elemental)] 325 mg PO DAILY Celecoxib [CeleBREX] 200 mg PO DAILY Discharge Medication List Ergocalciferol [Vitamin D2 (DRISDOL)] 50,000 unit PO Q7D 04/24/20 [History] Omeprazole 20 mg PO DAILY 04/24/20 [History] Oxybutynin Chloride [Oxybutynin Chloride ER] 15 mg PO DAILY 04/24/20 [History] valACYclovir [Valtrex] 500 mg PO DAILY 04/24/20 [History] Celecoxib [CeleBREX] 200 mg PO DAILY 11/13/20 [History] Ferrous Sulfate [Iron (65 MG Elemental)] 325 mg PO DAILY 11/13/20 [History] Acetaminophen Tab [Tylenol Tab] 1,000 mg PO Q6HR PRN #30 tablet 11/19/20 [Rx] [facility] up [facility]ment(s[facility]Ref[facility] [place] [facility] [place] [facility] Patient Instructions/Handouts: *[facility] - Managing Your Pain After Surgery Without Opioids, Abdominal Binder (DC), Adjustable Gastric Band Removal (DC) Activity/Diet/Wound Care/Special Instructions: Wear abdominal binder at all times except showering. Using antibacterial soap. No lifting over 2 weeks, Dec 03March shower. No bathtub soaks for 2 weeks, Dec 03 Wear abdominal binder daily for comfort except for showering. Use ice along incisions for the today to prevent swelling. Discharge Disposition: HOME SELF-CARE
[2020-11-19] MEDS ORDERED: KETOROLAC 15 MG/ML 1 ML VIAL IVP ONE (09:55)
[2020-11-19 10:48] VITALS: BP 120/75; PULSE 92; RESP 16
== END 2020-11-19 11:47 | disposition home or self-care (01) ==
LOC: OR 06:19
PROVIDERS: ATTEND Surgery Plastic and Reconstructive Surgery
DX: K95.09 Other complications of gastric band procedure (principal); K81.1 Chronic cholecystitis; K66.0 Peritoneal adhesions (postprocedural) (postinfection); E66.01 Morbid (severe) obesity due to excess calories; Z68.41 Body mass index [BMI] 40.0-44.9, adult; K21.9 Gastro-esophageal reflux disease without esophagitis; I49.9 Cardiac arrhythmia, unspecified; I11.9 Hypertensive heart disease without heart failure; R55 Syncope and collapse; K76.0 Fatty (change of) liver, not elsewhere classified; M17.0 Bilateral primary osteoarthritis of knee; Z86.010 Personal history of colon polyps; Z95.818 Presence of other cardiac implants and grafts; Z98.890 Other specified postprocedural states; Z90.89 Acquired absence of other organs; Z79.899 Other long term (current) drug therapy; Z79.1 Long term (current) use of non-steroidal anti-inflammatories (NSAID); Z88.5 Allergy status to narcotic agent; Z88.0 Allergy status to penicillin; Z91.040 Latex allergy status
CPT/HCPCS: 43774; J1100; J0690; J2405; J1885; C9113; J1170

== ENCOUNTER → 2020-12-05 | Outpatient (CLI) | payer BC ==
[2020-12-05 15:10] VITALS: BP 141/88; PULSE 85; RESP 18; TEMP 98.2; BMI 43.7
--- NOTE | 2020-12-05 15:20 | P.PN ---
Subjective Progress Note Date: 12/05/20 DATE OF SERVICE: 12/05/2020 CHIEF COMPLAINT: Status post band removal HISTORY OF PRESENT ILLNESS: Arpita Valente is a 60-year-old female who comes with lifelong morbid obesity. She has a gastric lap band since 2008, 12 years ago. She is now status post band removal 11/19/2020. She is 2 weeks post op. She comes in following her band removal. She reports left upper quadrant soreness along her band removal site. No reports of nausea or vomiting. She is wearing her abdominal binder. She confirms moderate carbohydrate intake with wine, sweet tea. She has intraoperative findinds of severe fatty liver disease, hepatomegaly, including moderate scarring from her adjustable gastric band. She presents for follow-up. At height of 5 feet 0 inches, her ideal body weight is 127 pounds. She comes in 224 pounds from 205 pounds, 5 months ago. She has gained 19 pounds in over 5 months. Her body mass index is 43.7. She is 97 pounds overweight. PHYSICAL EXAM: VITAL SIGNS: Height 5 foot 0 inches, weight 224 pounds. BMI 43.7 Vital Signs Temp 98.2 F 12/05/20 15:07 Pulse 85 12/05/20 15:07 Resp 18 12/05/20 15:07 BP 141/88 12/05/20 15:07 Pulse Ox GENERAL: Well-developed in no acute distress. HEENT: No scleral icterus. Extraocular movements grossly intact. Hears conversational speech. No nasal drainage. NECK: Supple without lymphadenopathy. CHEST: Nonlabored respirations with equal bilateral excursions. CARDIOVASCULAR: Regular rate and regular rhythm. Distal 2+ pulses. ABDOMEN: Obese, soft. No cellulitis. Incisions granulating. Appropriately tender left upper quadrant. MUSCULOSKELETAL: No clubbing, cyanosis. NEURO: No focal or lateralizing signs. Cranial nerves 2 through 12 grossly within normal limits. PSYCH: Appropriate affect. Alert and oriented to person, place and time. SKIN: Good skin turgor. Well perfused. ASSESSMENT: 1. Morbid obesity due to excess calories 2. Body mass index of 43.7. 3. Gastroesophageal reflux disease 4. Osteoarthritis of the knees 5. Heart arrhythmia 6. History of colon polyps 7. Hypertensive heart disease 8. Complications from adjustable gastric band 9. Status post band removal. 10. Hepatomegaly with fatty liver disease 11. Dietary surveillance and counseling. PLAN: 1. Recommend food dairy journal for fatty liver disease and care. 2. She has pain at the port site. Recommend warm compress/ice and binder. 3. Recommend additional time for recovery. 4. Carbohydrate restriction advised. Objective - Vital Signs Vital signs: Vital Signs Temp 98.2 F 12/05/20 15:07 Pulse 85 12/05/20 15:07 Resp 18 12/05/20 15:07 BP 141/88 12/05/20 15:07 Pulse Ox Intake & Output 12/04/20 12/05/20 12/05/20 18:59 06:59 18:59 Weight 101.605 kg
== END | disposition home or self-care (01) ==
LOC: BARWHC3 14:01
PROVIDERS: ATTEND Surgery Plastic and Reconstructive Surgery
DX: E66.01 Morbid (severe) obesity due to excess calories (principal); K21.9 Gastro-esophageal reflux disease without esophagitis; M17.0 Bilateral primary osteoarthritis of knee; I49.9 Cardiac arrhythmia, unspecified; I11.9 Hypertensive heart disease without heart failure; K95.09 Other complications of gastric band procedure; K76.0 Fatty (change of) liver, not elsewhere classified; Z87.19 Personal history of other diseases of the digestive system; Z68.41 Body mass index [BMI] 40.0-44.9, adult; Z71.3 Dietary counseling and surveillance
CPT/HCPCS: 99211